=== PATIENT | male | born 1985 | race Caucasian/White ===

== ENCOUNTER 2023-01-17 05:36 | Emergency (ER) | payer OTHER ==
[2023-01-17] MEDS ORDERED: Ketorolac 60 MG/2 ML SDV IM ONE (06:38)
[2023-01-17] MEDS ORDERED: Ketorolac 60 MG/2 ML SDV ONE (06:39)
[2023-01-17] MEDS ORDERED: traMADol 50 MG Tab ONE (06:50)
[2023-01-17] MEDS ORDERED: Amoxicillin/Clavulanate K 875-125 MG Tab ONE (06:50)
== END 2023-01-17 06:55 | disposition home or self-care (01) ==
LOC: LB.ED 05:36
DX: J01.00 Acute maxillary sinusitis, unspecified (principal); M26.602 Left temporomandibular joint disorder, unspecified; F17.210 Nicotine dependence, cigarettes, uncomplicated; E66.9 Obesity, unspecified; Z68.44 Body mass index [BMI] 60.0-69.9, adult; Z86.16 Personal history of COVID-19; Z79.899 Other long term (current) drug therapy; Z88.5 Allergy status to narcotic agent; Z88.1 Allergy status to other antibiotic agents
CPT/HCPCS: 96372; 99282; A9270; J1885